=== PATIENT | male | born 2000 | race Two or more races ===

== ENCOUNTER 2022-02-04 21:31 | Emergency (ER) | payer OTHER ==
[2022-02-04] MEDS ORDERED: CHERRY SYRUP 10 ML UDC PO ONE (22:13)
[2022-02-04] MEDS ORDERED: DEXAMETHASONE 10 MG/ML VIAL PO STA (22:13)
[2022-02-04] MEDS ORDERED: IBUPROFEN 600 MG TABLET PO STA (22:13)
--- NOTE | 2022-02-04 22:13 | ED Physician Documentation ---
PD HPI HEENT - Stated complaint Stated Complaint: SORE THROAT - Chief complaint Chief Complaint: Heent - History obtained from History obtained from: Patient - History of Present Illness Timing - onset: How many days ago (3) Timing - duration: Days (3) Timing - details: Gradual onset, Constant Pain level now: 9 Location: Throat Improves: Nothing Worsens: Swalllowing Associated symptoms: Headache. No: Fever, Unable to swallow, Cough Recently seen: Not recently seen - Additional information Additional information: c/o 3 days of sore throat with odynophagia. Denies fever. Mild generalized headache Review of Systems Constitutional: denies: Fever, Chills, Sweats Throat: reports: Sore throat Respiratory: denies: Dyspnea, Cough PD PAST MEDICAL HISTORY - Past Medical History Past Medical History: No - Allergies Allergies/Adverse Reactions: Allergies Allergy/AdvReac Type Severity Reaction Status Date / Time No Known Drug Allergies Allergy Verified 02/04/22 21:44 PD ED PE NORMAL - Vitals Vital signs reviewed: Yes - General General: Alert and oriented X 3, Well developed/nourished, Other (appears uncomfortable when he swallows, otherwise NAD) - HEENT HEENT: Moist mucous membranes - Neck Neck: Supple, no meningeal sign PD ED PE EXPANDED - HEENT HEENT: Pharyngeal erythema, Swollen tonsils. No: Tonsillar exudate Results - Vitals Vitals: Vital Signs - 24 hr 02/04/22 02/04/22 21:44 23:04 Temperature 37.1 C 37.1 C Heart Rate 88 80 Respiratory 16 16 Rate Blood Pressure 156/82 H 123/81 H O2 Saturation 100 98 Oxygen O2 Source Room air - Labs Labs: Laboratory Tests 02/04/22 22:24 Group A Strep Rapid Negative PD MEDICAL DECISION MAKING - ED course Complexity details: reviewed results, re-evaluated patient, considered differential, d/w patient ED course: rapid strep negative. He is given ibuprofen and decadron (PO) in ED, take-home pack of vicodin with instruction to use the vicodin if ibuprofen is not effective in controlling his pain. Results d/w patient, return precautions discussed. Departure - Departure Disposition: 01 Home, Self Care Clinical Impression: Pharyngitis Condition: Good Instructions: ED Pharyngitis Viral Report Pending Follow-Up: RACHELLE Zelaya [Provider Group] Comments: Your strep test is negative. As we discussed, the sample/swab will now undergo a culture test; this is a more accurate test, but requires 1-2 days to complete. If the culture is positive for infection, you will receive a call and an antibiotic will be provided (sent to your pharmacy of choice). At this point, however, the infection is most likely due to a virus and needs time to work its way out. Forms: Activity restrictions Discharge Date/Time: 02/04/22 23:16
[2022-02-04 22:37] LABS: RAPID STREP SCREEN Negative (Negative)
[2022-02-04] MEDS ORDERED: HYDROcod/ACET 5/325 Prepack 4 PO STA (22:55)
[2022-02-04 23:04] VITALS: BP 123/81
== END 2022-02-04 23:16 | disposition home or self-care (01) ==
LOC: ED 21:31
DX: J02.9 Acute pharyngitis, unspecified (principal)
CPT/HCPCS: 87070; 87077; 87430; 99282; 99283; A9270